=== PATIENT | female | born 1950 | race Caucasian/White ===

== ENCOUNTER → 2025-03-23 | Day surgery (SDC) | payer MEDICARE ==
[2025-03-19 12:19] LABS: BASOPHILS % 0.5 % (0.0-1.0); EOSINOPHILS % 1.4 % (0.0-6.0); LYMPHOCYTES % 28.2 % (18.0-39.1); MONOCYTES % 7.8 % (4.4-11.3); NEUTROPHILS % 61.8 % (38.7-80.0); RED CELL DISTRIBUTION WIDTH 12.6 % (11.7-14.4)
[~2025-03-23] MED LIST: ACETAMINOPHEN 1000 MG/100 ML 100 ML IV ONE; AMLODIPINE BESYL5 MG PO; ATORVASTATIN CA20 MG PO; B COMPLEX1 EACH; B-COMPLEX WITH1 EAC2; BUPIVACAINE 0.5%/EPI 30 ML SDV INJ ONE; CALCIUM ACETAT667 MG PO; CETIRIZINE HCL10 M1; D3-5000125 MCG; DEXAMETHASONE SOD PHOS INJ 4 MG/ML SDV ONE; EPHEDRINE SULFATE INJ 50 MG/ML VIAL ONE; ESCITALOPRAM OXA5 MG; FENTANYL CITRATE/PF 100MCG/2 ML INJ ONE; HYDROCHLOROTHIA25 MG; HYDROCODON-ACE1 EA11 PO; INDERAL LA60 MG PO; LIDOCAINE HCL 2% LOCAL INJ 5 ML SDV VIAL INJ ONE; LOSARTAN POTAS100 MG PO; LOSARTAN-HCTZ1 EACH PO; ONDANSETRON HCL INJ 2MG/ML 2ML 2 MG/ML VIAL ONE; PANTOPRAZOLE SO40 MG PO; PRAMIPEXOLE D0.25 MG PO; PROPOFOL IV EMULSION 10 MG/ML 20 ML VIAL ONE; PROTONIX20 MG PO; RASAGILINE MESYL1 MG PO; SEVOFLURANE INHAL SOLN 250 ML PEN BTL ONE; VESICARE5 MG PO; VITAMIN C500 MG PO; VITAMIN D31 GM
[2025-03-23] MEDS: CEFAZOLIN SODIUM 2 GM ONE (07:42)
[2025-03-23] MEDS: LACTATED RINGER'S 1,000 ML ONE (07:42)
[2025-03-23 12:20] VITALS: BP 121/60; PULSE 61; RESP 18; O2SAT 99
== END | disposition home or self-care (01) ==
LOC: OR 07:08
PROVIDERS: ATTEND Podiatrist Foot Surgery
DX: D18.01 Hemangioma of skin and subcutaneous tissue (principal); T84.84XA Pain due to internal orthopedic prosthetic devices, implants and grafts, initial encounter; M20.42 Other hammer toe(s) (acquired), left foot; M06.9 Rheumatoid arthritis, unspecified; G20.A1 Parkinson's disease without dyskinesia, without mention of fluctuations; I10 Essential (primary) hypertension; I25.10 Atherosclerotic heart disease of native coronary artery without angina pectoris; I25.2 Old myocardial infarction; K28.9 Gastrojejunal ulcer, unspecified as acute or chronic, without hemorrhage or perforation; Y83.8 Other surgical procedures as the cause of abnormal reaction of the patient, or of later complication, without mention of misadventure at the time of the procedure; Z88.2 Allergy status to sulfonamides; Z01.810 Encounter for preprocedural cardiovascular examination; Z01.812 Encounter for preprocedural laboratory examination; Z01.818 Encounter for other preprocedural examination; Z79.899 Other long term (current) drug therapy; Z95.0 Presence of cardiac pacemaker
CPT/HCPCS: 11422; 28285 ×2; 36415; 71046; 85025; 88300; 88305; 93005; C1713; J0131; J1100; J2003; J2405; J2704; J3010; J7121; 88304